=== PATIENT | male | born 2005 | race Caucasian/White ===

== ENCOUNTER 2023-10-07 07:56 | Emergency (ER) | payer BC, SELFPAY ==
[2023-10-07] VITALS (7 sets, daily range): BP systolic 142–158; BP diastolic 79–101; PULSE 67–95; RESP 12–20; TEMP 36.9; O2SAT 95–98; BMI 35.8
--- NOTE | 2023-10-07 08:06 | XR_ITS ---
The [address] [address] Patient Name: RANDY CHOUDHARY MRN: [id number] date: 2005 Sex: M Assigned Patient Location: ER Current Patient Location: ER Accession/Order Number: [id number] Exam Date: 10/07/2023 08:08 Report Date: 10/07/2023 08:23 At the request of: DENISE LOPEZ Procedure: XR chest 1V XR chest 1V 10/07/2023 8:08 AM EST INDICATION: Chest pain COMPARISON: No prior radiographs of the chest available for comparison at the time of this dictation. FINDINGS: Cardiomediastinal silhouette within normal limits. No focal consolidation or pleural effusion. No pneumothorax. No acute fracture or dislocation. XR/XR chest 1V IMPRESSION: No acute cardiopulmonary process. Electronically authenticated by: COURTNEY BURGOS Date: 10/07/2023 08:23
--- NOTE | 2023-10-07 08:06 | ECG_ITS ---
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
--- NOTE | 2023-10-07 08:10 | ED_ITS ---
HPI - Chest Pain General Chief Complaint: Chest Pain Stated Complaint: CHEST PAIN Time Seen by Provider: 10/07/23 08:03 Source: patient Mode of arrival: walk-in History of Present Illness HPI narrative: 18-year-old male presents to the emergency department for chest pain. It's been intermittent since yesterday. He points to the middle part of his chest and feels like somebody punched him. No fever. He's had a slight cough recently but no vomiting or diarrhea. It doesn't seem to radiate and he does not complain to me of shortness of breath. Related Data Home Medications Medication Instructions Recorded Confirmed No Known Home Medications 10/07/23 10/07/23 Allergies Allergy/AdvReac Type Severity Reaction Status Date / Time No Known Drug Allergies Allergy Verified 10/07/23 08:00 Review of Systems ROS Narrative A ten point review of systems is negative except as noted above. PFSH PFS Social History Smoking status: Current every day smoker Exam Narrative Exam Narrative: Nurses note and vital signs reviewed and patient is not hypoxic. General: The patient appears well and in no apparent distress. Patient is resting comfortably on cart. Skin: Warm, dry, no pallor noted. There is no rash noted. Head: Normocephalic, atraumatic Eye: Normal conjunctiva, no drainage Ears, Nose, Mouth, and Throat: oral mucosa is moist. Nares patent. Cardiovascular: Regular Rate and Rhythm; chest wall has no crepitus bruise rash Respiratory: Patient is in no distress, no accessory muscle use, lungs are clear to auscultation, no wheezing, rales or rhonchi Back: non-tender, no CVA tenderness bilaterally to percussion. GI: soft and nontender Musculoskeletal: The patient has no evidence of calf tenderness, no pitting edema, symmetrical pulses noted bilaterally Neurological: A&O, normal speech Psychiatric: Cooperative Constitutional Vital Signs, click to edit/add: Last Vital Signs Temp 98.5 F 10/07/23 08:00 Pulse 67 10/07/23 08:36 Resp 15 10/07/23 08:36 BP 142/79 H 10/07/23 08:36 Pulse Ox 95 10/07/23 08:36 O2 Del Method Room Air 10/07/23 08:00 Course Vital Signs Vital signs: Vital Signs Temperature 98.5 F 10/07/23 08:00 Pulse Rate 95 H 10/07/23 08:00 Respiratory Rate 16 10/07/23 08:00 Blood Pressure 158/98 H 10/07/23 08:00 Pulse Oximetry 98 10/07/23 08:00 Oxygen Delivery Method Room Air 10/07/23 08:00 Temperature 98.5 F 10/07/23 08:00 Pulse Rate 67 10/07/23 08:36 Respiratory Rate 15 10/07/23 08:36 Blood Pressure 142/79 H 10/07/23 08:36 Pulse Oximetry 95 10/07/23 08:36 Oxygen Delivery Method Room Air 10/07/23 08:00 MDM - Chest Pain MDM Narrative Medical decision making narrative: his workup is negative. Findings are discussed thoroughly with the patient and he'll be discharged home. Differential Diagnosis Differential diagnosis: Likely pneumothorax, atypical chest pain, st elevation myocardial infarction, costochondritis and chest pain Lab Data Attestation: I reviewed the patient's lab results. Labs: Lab Results 10/07/23 Range/Units 08:21 WBC 6.4 (4.0-11.0) 10^3/uL RBC 5.53 (4.70-6.10) 10^6/uL Hgb 15.5 (14.0-18.0) g/dL Hct 46.4 (42.0-54.0) % MCV 83.9 (80.0-94.0) fL MCH 28.0 (25.9-34.0) pg MCHC 33.4 (29.9-35.2) g/dL RDW 12.8 (11.0-15.0) % Plt Count 206 (150-450) 10^3/uL MPV 11.5 (9.5-13.5) fL Neut % (Auto) 57.3 (43.0-75.0) % Lymph % (Auto) 32.9 (20.5-60.0) % [place] % (Auto) 5.9 (1.7-12.0) % Eos % (Auto) 3.1 (0.9-7.0) % Baso % (Auto) 0.5 (0.2-2.0) % Neut # (Auto) 3.7 (1.4-6.5) 10^3/uL Lymph # (Auto) 2.1 (1.2-3.8) 10^3/uL [place] # (Auto) 0.4 (0.3-0.8) 10^3/uL Eos # (Auto) 0.2 (0.0-0.7) 10^3/uL Baso # (Auto) 0.0 (0.0-0.1) 10^3/uL Abs Immat Gran (auto) 0.02 (0.00-0.03) 10^3/uL Imm/Tot Granulo (auto) 0.3 (0.0-0.5) % Sodium 139 (136-145) mmol/L Potassium 4.3 (3.5-5.1) mmol/L Chloride 101 (98-107) mmol/L Carbon Dioxide 25.3 (21.0-32.0) mmol/L Anion Gap 17.0 BUN 14.0 (7.0-18.0) mg/dL Creatinine 0.99 (0.70-1.30) mg/dL Est GFR ( Amer) >60 (>=60) Est GFR (Non-Af Amer) >60 (>=60) BUN/Creatinine Ratio 14.1 Glucose 93 (74-106) mg/dL Calcium 9.3 (8.5-10.1) mg/dL Troponin I High Sens 14.9 (4.0-76.1) pg/mL Imaging Data Chest x-ray: Radiologist's impression: ITS Impressions Chest X-Ray 10/07/23 08:06 IMPRESSION: No acute cardiopulmonary process. Electronically authenticated by: COURTNEY BURGOS Date: 10/07/2023 08:23 ECG Data Attestation: I personally reviewed and interpreted this ECG as follows: (EKG on my interpretation shows normal sinus rhythm without acute changes and a rate of 73.) Discharge Plan Discharge Chief Complaint: Chest Pain Clinical Impression: Chest pain Patient Disposition: Home, Self-Care Time of Disposition Decision: 09:09 Condition: Good Mode of Transportation: Private Vehicle Prescriptions / Home Meds: No Action No Known Home Medications Instructions: Chest Pain (ED) Stand Alone Forms: Portal Instructions Referrals: Armando Beauchamp MD [Primary Care Provider] - 1 week
[2023-10-07 08:29] LABS: Basophils Percent Auto 0.5 % (0.2-2.0); Eosinophils Absolute Auto 0.2 10^3/uL (0.0-0.7); Eosinophils Percent Auto 3.1 % (0.9-7.0); Hematocrit 46.4 % (42.0-54.0); Hemoglobin 15.5 g/dL (14.0-18.0); Immature Granulocytes Abs Auto 0.02 10^3/uL (0.00-0.03); Immature Granulocytes Pct Auto 0.3 % (0.0-0.5); Lymphocytes Absolute Auto 2.1 10^3/uL (1.2-3.8); Lymphocytes Percent Auto 32.9 % (20.5-60.0); Mean Corpuscular HGB Conc 33.4 g/dL (29.9-35.2); Mean Corpuscular Volume 83.9 fL (80.0-94.0); Mean Platelet Volume 11.5 fL (9.5-13.5); Monocytes Absolute Auto 0.4 10^3/uL (0.3-0.8); Monocytes Percent Auto 5.9 % (1.7-12.0); Neutrophils Absolute Auto 3.7 10^3/uL (1.4-6.5); Neutrophils Percent Auto 57.3 % (43.0-75.0); Platelet Count 206 10^3/uL (150-450); Red Blood Count 5.53 10^6/uL (4.70-6.10); Red Cell Distribution Width 12.8 % (11.0-15.0); White Blood Count 6.4 10^3/uL (4.0-11.0)
[2023-10-07] MEDS: KETOROLAC TROMETHAMINE 30 MG/ML VIAL IVP (08:34)
[2023-10-07 08:52] LABS: BUN Creatinine Ratio 14.1; Calcium 9.3 mg/dL (8.5-10.1); Carbon Dioxide 25.3 mmol/L (21.0-32.0); Chloride 101 mmol/L (98-107); Estimated GFR (African America >60 (>=60); Estimated GFR (Non-African Ame >60 (>=60); Glucose 93 mg/dL (74-106); Potassium 4.3 mmol/L (3.5-5.1); Sodium 139 mmol/L (136-145); Troponin I High Sensitivity 14.9 pg/mL (4.0-76.1)
== END 2023-10-07 09:34 | disposition home or self-care (01) ==
PROVIDERS: Emergency Provider Emergency Medicine; PCP Family Medicine
DX: R07.9 Chest pain, unspecified (principal); F17.210 Nicotine dependence, cigarettes, uncomplicated
CPT/HCPCS: 36415; 71045; 80048; 84484; 85025; 87420; 87804; 87811; 93005; 96374; 99285; J1885